=== PATIENT | male | born 1960 | race Caucasian/White ===

== ENCOUNTER 2021-08-02 19:48 | Inpatient (IN) | payer OTHER, BC ==
[~2021-08-02] VITALS: Ht 172.7 cm; Wt 56.2 kg
[~2021-08-02 19:48] MED LIST: BACLOFEN5 MG PO; BENZTROPINE ME0.5 MG PO; BIOFREEZE118 ML TP; CHILDREN'S ZYRT10 M1 PO; CLONAZEPAM 0.50.5 M1 PO; DESYREL150 MG PO; MELATONIN3 M1 PO; MILK OF MA400 MG/5 M PO; MUPIROCIN1 GM TOP; SENNA8.8 MG/5 M PO
[2021-08-02 20:04] VITALS: BP 148/86
[2021-08-02 22:55] VITALS: BP 132/82
--- NOTE | 2021-08-02 23:00 | NUR ---
PATIENT LAYING IN BED WITHOUT ANY COMPLAINTS AT THIS TIME. CALL LIGHT WITHIN REACH. PATIENT LAYING WITH CHIN TUCKED, NO COMMUNCATION EFFORTS MADE TO THIS NURSE. BP 125/74, HR 84, 02-97% RA.
--- NOTE | 2021-08-03 01:52 | NUR ---
HAVE ASSUMED CARE, PT IS SLEEPING AT BEDSIDE
--- NOTE | 2021-08-03 02:44 | NUR ---
UP , AWAKE, TOOK PT TO THE BATHROOM, CHANGED HIS DEPENDS
--- NOTE | 2021-08-03 04:12 | NUR ---
UP WALKING IN [place] WITH
--- NOTE | 2021-08-03 04:53 | NUR ---
COVID PCR IS POSITIVE, WIRE GALVANIZER TALKING WITH , SHE HAS CALLED [facility] AT BEDSIDE
--- NOTE | 2021-08-03 05:54 | NUR ---
THRESHOLD IS 33.4 AND 33.8- RELAYED TO STAFF THAT IT MUST BE 38 TO BE CONSIDER ED NON INFECTIOUS. HAVE OFFERED HER THE ABILITY TO HAVE PT SWABBED AGAIN THIS AM, IT WILL BE 8 HOURS FOR RESULTS TO BE BACK. ALSO OFFERED TO HAVE INFECTIOUS DISEASE PHYSICIAN SEE HIM. SHE HAS DECLINED TO HAVE PT ADMITTED TO COVID UNIT, CONCERNED ABOUT HIS EXPOSURE TO INFECTIOUS PATIENTS. ALSO CONCERNED ABOUT THE NEED FOR MEDICATION MANAGEMENT TO CONTROL RESTLESSNESS. THAT [facility] ENVIRONMENT IS NOT CONDUCIVE TO MONITORING EFFECTIVELY RESPONSE TO MEDICATIONS.
--- NOTE | 2021-08-03 05:59 | NUR ---
THRESHOLDS RAN ON PCR TEST WITH RESULTS OF 33.8 AND 33.4.
--- NOTE | 2021-08-03 07:00 | NUR ---
CONTACTED DR VERDUZCO, HE WILL COME IN THIS AM AND EVALUATE PT SPOUSE DECLINES TO HAVE PT PLACED ON .
--- NOTE | 2021-08-03 07:54 | NUR ---
DR. VERDUZCO HERE TO SPEAK WITH PT. REGARDING PLAN OF CARE FOR PATIENT.
[2021-08-03 08:54] VITALS: BP 151/97
[2021-08-03] MEDS ORDERED: SEROQUEL 25 MG25 M1 PO (09:14)
[2021-08-03] MEDS ORDERED: DEPAKOTE250 MG PO (09:15)
[2021-08-03 09:34] VITALS: BP 129/49
[2021-08-03 12:38] LABS: CHOLESTEROL 171 mg/dL (<200); HDL CHOLESTEROL 66 mg/dL (>40); LDL CHOLESTEROL 89 mg/dL (<100); TC:HDL 2.6 Ratio (Not establshd); TRIGLYCERIDE 80 mg/dL (<150); VLDL 16 mg/dL (<40)
[2021-08-03 15:50] VITALS: BP 166/90
[2021-08-03 21:40] VITALS: BP 163/100
[2021-08-04 04:06] LABS: GLYCOHEMOGLOBIN (HGB A1C) 5.2 % (4.8-5.6)
--- NOTE | 2021-08-04 04:13 | NUR ---
Patient with Alzheimer's dementia, 1:1 sitter at bedside, awake most of the night. Incontinent. Took meds crushed with pudding. Denies pain, Diclofenac not given. High fall risk due to altered mental status, gait steady. Enhanced isolation, COVID positive, asymptomatic. Await patient disposition.
[2021-08-04 07:15] VITALS: BP 127/71
--- NOTE | 2021-08-04 14:27 | NUR ---
SW reviewed chart. Per notes, pt was on service with [facility] prior to admissions. SW spoke with [facility] client liaison, Sol, who states that hospice services were revoked prior to pt coming to the hospital. COLLINS requested hospice revocation ppwk. COLLINS received ppwk and provided to Director of Case Mgmt. COLLINS is following to assist as needed with discharge planning.
[2021-08-04 17:55] VITALS: BP 150/98
[2021-08-04 19:21] VITALS: BP 138/78
[2021-08-05 04:00] VITALS: BP 95/64
--- NOTE | 2021-08-05 05:08 | NUR ---
PROGRESS PT SLEEPING MOST OF SHIFT, SITTER AT BEDSIDE. PT NOT TRYING TO GET OUT OF BED WHEN AWAKE JUST WIGGLING AROUND IN BED. ISOLATION DISCONTINUED PER ED [facility]. INCONTINENT OF URINE PERICARE PROVIDED. CONTINUE POC.
[2021-08-05 08:12] VITALS: BP 102/71
[2021-08-05 15:02] VITALS: BP 130/90
--- NOTE | 2021-08-05 17:12 | NUR ---
CARE ASSUMED THIS AM, PT ALERT TO SELF. HAS SITTLE DUE TO BEING IMPULSIVE AND AGITATED. ON ROOM AIR AND SAT ABOUT 90%. PT IS OFF ISO PER ID. INCONTINENT OF BOWEL AND BLADDER. NO IV PER DR. ORDER. FALL PRECAUTIONS IN PLACE. PT CALLED AND UPDTAED ABOUT CARE.
[2021-08-05 19:10] VITALS: BP 125/92
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
--- NOTE | 2021-08-06 01:30 | NUR ---
PROGRESS PT ALERT BUT NOT ORIENTED ATTEMPTING TO COMMUNICATE BUT WORDS ARE GARBLED. ACTING IMPULSIVE AT START OF SHIFT AND AGGRESSIVE WITH SITTER BUT EASILY DISTRACTED AND REDIRECTED. SLEEP ON AND OFF THROUGHOUT SHIFT VSS. CONTINUE POC.
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
[2021-08-06 07:13] VITALS: BP 99/70
[2021-08-06 16:00] VITALS: BP 125/83
--- NOTE | 2021-08-06 19:33 | NUR ---
ASSUMED PATIENT CARE AT 0700. AWAKE. RESTLESS. AMBULATED IN ROOM. PROGRESSING TOWARDS POC GOALS.
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
[2021-08-07 07:32] VITALS: BP 143/69
--- NOTE | 2021-08-07 14:27 | NUR ---
ORDERS FOR EVAL AND TREAT. Pt IS UP AD NANO IN ROOM. OBSERVED Pt AMBULATING IN ROOM WITHOUT DIFFICULTY AND SPOKE TO NURSING WHO STATES THEY ARE ALLOWING HIM TO GET UP AND WALK WHICH HE DOES. Pt DOES NOT REQUIRE SKILLED SERVICES FOR MOBILITY.
--- NOTE | 2021-08-07 15:26 | NUR ---
08-07-2021--4410--Met with patient's (who is an RN). Allowed her to vent about the decline she feels she sees in his behavior. She reports that [facility] is refusing to take him back and asked her if she had just "considered taking him home with her". Patient had Hospice prior to hospital placement. ([facility] She reports Taci has been working with them from hospice. stated she had several other nursing homes I could try. (Patient is private pay.) She named: [facility]; [facility]; [facility] and [facility]. Worker attempted to call [facility] ([phone]) No one in admissions. Left message to call me back.
--- NOTE | 2021-08-07 19:00 | NUR ---
PT SLEPT UNTIL ABOUT 1030...THEN HE WALKED IN ROOM WITH SITTER PRESENT... AROUND 1530 HE WALKED IN HALLS AROUND WHOLE UNIT WITH AND SITTER FOR ABOUT 45 MINUTES...GAIT BELT IN USE TOLERATED WELL...NEEDS REDIRECTION TO STAY ON HIS PATH AT TIMES...
[2021-08-07 20:00] VITALS: BP 118/80
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
[2021-08-08 06:55] VITALS: BP 150/79
--- NOTE | 2021-08-08 06:57 | NUR ---
PT SLEPT ALL NIGHT. PT REQUIRES TOTAL CARE FOR ADLS.
[2021-08-08 07:10] VITALS: BP 133/75
--- NOTE | 2021-08-08 08:01 | NUR ---
08-08-2021--0745: Faxed information to all facilities requested by . Also attempted call (and faxed information to [facility]) to discuss patient returning to his old alf. Waiting for replies.
[2021-08-08 10:29] LABS: HEMOGLOBIN 15.6 gm/dL (14.0-18.0); MCH 30.6 pg (26.0-34.0); MCHC 33.2 g/dL (28.0-37.0); MCV 92.3 fL (80.0-100.0); RBC 5.09 mil/uL (4.50-6.00); RDW 14.3 % (10.5-14.5); WBC 7.4 thou/uL (4.0-11.0)
[2021-08-08 10:38] LABS: ALBUMIN 3.9 g/dL (3.4-5.0); CALCIUM 9.4 mg/dL (8.5-10.1); CREATININE 0.8 mg/dL (0.7-1.3); POTASSIUM 4.4 mmol/L (3.5-5.1); TOTAL BILIRUBIN 0.6 mg/dL (0.2-1.0); TOTAL PROTEIN 7.7 g/dL (6.4-8.2)
--- NOTE | 2021-08-08 15:05 | NUR ---
08-08-2021--11:00--Call received from ARELIS at [facility] re: patient and his return to their facility (where he came from). RN had many reasons why he couldn't come back stating he was "aggressive". Explained that his behaviors have been bdtter here and it is mainly because on the unit he is on he can't roam. Dr Cisneros explained he would not be going back to [facility] on IM meds. She asked if doctor would write letters explainng interventions and that his behaviors have been appropriate for someone with dementia. Call back to Andrew at 1535 to determine if she had gotten my fax. She states she did and her director is now speaking with another person in administration. She stated Saturday would be a better day for him as there are less staff and no RN available on the weekends. I told her I would pass this on to the doctor. She will call back with the administrations response.
[2021-08-08 15:10] VITALS: BP 145/97
--- NOTE | 2021-08-08 16:00 | NUR ---
08-08-2021--6867--Call from patient's requesting information on placement for her . Advised her that we are still talking with [facility] about bringing him back to their facility. She wanted to kmnow about the other facilities. I explained I have sent faxes and I am waiting for them to call back.
--- NOTE | 2021-08-08 18:20 | NUR ---
NO CHANGE NO THIS SHIFT. AMBULATED IN ROOM WITH SITTER. PROGRSSING TOWARDS POC GOALS.
[2021-08-08 19:39] VITALS: BP 146/88
--- NOTE | 2021-08-09 01:39 | NUR ---
PROGRESS PT ALERT, NON-VERBAL OR UNINTELLIABLE WORDS. UP AMBULATING IN ROOM AT START OF SHIFT. EVENING MEDS GIVEN PER ORDER CRUSHED IN ICE CREAM. PT WENT TO BED AT 2230 AND SLEPT MOST OF SHIFT. VSS. SKIN C/D/I REMAINS INCONTINENT OF BOWEL AND BLADDER. CONTINUE POC.
[2021-08-09 03:31] VITALS: BP 105/55
[2021-08-09 07:05] VITALS: BP 146/77
--- NOTE | 2021-08-09 16:08 | NUR ---
TODAY THIS PT HAS BEEN IN HIS ROOM PACING AROUND FOR MOST OF THE DAY HE AHS HAD STABLE VS AND NO STATED PAIN. HE HAS ATE SOME OF HIS LUNCH AND OTHERWISE HAS BEEN UP AND DOWN ALL DAY. PHYSCIAN WAS CALLED ORDERS WERE GIVEN WHEN HE WAS AGITATED AND SINCE HE HAS BEEN CALM. HE OTHERWISE AWAITS FOR THE NEXT PLAN.
--- NOTE | 2021-08-09 21:29 | NUR ---
PT IN BED AT 2128
--- NOTE | 2021-08-09 21:41 | NUR ---
PROGRESS PT UP AMBULATING IN ROOM, HAD A BM AND SMEARED ON WALL CLEANED UP BY STAFF. ATE AN ICE CREAM WITH ASSISTANCE. GAVE CUPS AND PT STACKED CUPS FOR AWHILE TYLENOL GIVEN FOR NECK PAIN, AND DICLOFENAC CREAM MASSAGED INTO NECK AND SHOULDERS, PT REALLY ENJOYS THE MASSAGE, HE CALMS DOWN AND RELAXES AND WENT TO BED SHORTLY AFTER AT 2130. PT HAD A HARD DAY WAS AGITATED DURING DAY SHIFT AND HAD A GEODON INJECTION. PLAN IS TO [facility] SATUR[facility]. CONTINUE TO MONITOR.
[2021-08-09 23:40] VITALS: BP 141/75
--- NOTE | 2021-08-10 04:55 | NUR ---
pt slept from 2130 to 0400.
--- NOTE | 2021-08-10 04:56 | NUR ---
08/08 -08/09 pt slept 9.5 hours
[2021-08-10 06:50] VITALS: BP 146/107
--- NOTE | 2021-08-10 13:39 | NUR ---
08-10-2021--6283--Resident has been accepted back to his old facility, [place]. An admisssion person Inna will be in on or Saturday to do an assessment. The home cannot take him until Saturday. Call will be made to .--Call to ([phone]) Iliana. She states Lionel is waiting for my call today to tell her she can come and do an assessment. I advised Iliana there wouldn't be a problem with her going on the medical floor and she stated she would be there tomorrow to assess the patient.
--- NOTE | 2021-08-10 13:49 | NUR ---
08-10-2021--1752--Call to Iliana to let her know rep from [employer] would be there tomorrow early to do eval.
--- NOTE | 2021-08-10 19:09 | NUR ---
PT SLEPT ABOUT 4 HOURS TODAY...HE IS INCONTINENT OF BOWEL/BLADDER..HE DID NOT HAVE ANY AGGRESSIVE BEHAVIORS TODAY...HE WENT OUTSIDE TO [place] WITH SITTER AND WITH W/C ANG GAIT BELT TO GET SOME FRESH AIR AND DID WELL PER SITTER..
--- NOTE | 2021-08-11 03:10 | NUR ---
CARE ASSUMED AT 1900 PATIENT WAS AGITATED. AT BEDSIDE. PATIENT IS ON 1;1 FOR SAFETY. PATIENT ENCOURAGED FLUIDS. PATIENT TOOK HS MEDS WITH A LOT OF ENCOURAGEMENT. PATIENT AMBULATES IN THE ROOM WITH STEADY GAITS. NO S/S OF PAIN OR DISCOMFORT. PATIENT IN BED ASLEEP AT THIS TIME BREATHING REGULAR AND UNLABOURED.
[2021-08-11 07:41] VITALS: BP 88/62
[2021-08-11 09:58] VITALS: BP 101/70
--- NOTE | 2021-08-11 11:32 | NUR ---
Seen for LOS: Pt noted with dx dementia, admitted r/t altered mental status from [facility]. He was set to b on [facility], however his PCR covid still showing + from COVID in April. bedside during visit and reports he lost 25# (17% UBW) in 3 wk period in April and UBWR 145-150#. His UBW since has been ~125#. His appetite is good; does better with finger foods or feeding assist. He gets Yonis ensure at all meals and he enjoys those. D/C plan is for return to [facility] on Saturday. Low nutrition risk with interventions in place.
--- NOTE | 2021-08-11 12:42 | NUR ---
CARE ASSUMED THIS AM, PT ALERT TO SELF. UNABLE TO FOLLOW COMMANDS. PT HAS A 1 TO 1 SITTER.NO IV ACCESS PER ORDER. PT AMBULATYES WITH STAFF AND . UPDATED ABOUT CARE. PLAN IS FOR PT TO D/C ON SATURDAY. FALL PRECAUTIONS IN PLACE. WILL CONTINUE TO MONITOR
--- NOTE | 2021-08-12 02:40 | NUR ---
PROGRESS PT ALERT BUT NOT ORIENTED. UP AD NANO PACING IN ROOM. VERY RESTLESS TONIGHT. ATE A CUP OF ICE CREAM AND TAKING SMALL AMOUNTS OF FLUIDS WITH ENCOURAGEMENT. SITTER AT BEDSIDE. PT IN BED AROUND 2300 BUT ARRANGING BLANKETS FREQUENTLY. CONTINUE TO MONITOR.
--- NOTE | 2021-08-12 06:13 | NUR ---
PROGRESS PT RESTLESS THIS SHIFT UPPACING IN ROOM FOR MOST OF SHIFT AND WHEN HE LAID DOWN IN BED HE TOSSED AND TURNED AND DID NOT SLEEP UNTIL 5 TO 6 AM. SITTER AT BEDSIDE FOR SAFETY.
[2021-08-12 07:49] VITALS: BP 142/73
--- NOTE | 2021-08-12 17:38 | NUR ---
PT HAD NEAR MISS OF FALL, 1:1 SITTER FEEDING PT DINNER, PT ACTED LIKE HE WAS GOING TO SIT IN A CHAIR WITH NO CHAIR BEHIND HIM. 1:1 SITTER ABLE TO ASSIST PT COMPLETELY TO FLOOR WITH NO APPARENT INJURY OR DISTURBANCE TO PT. PHYSICIAN CONTACTED. THIS RN AND TRAFFIC CONTROL SUPERVISOR ABLE TO ASSIST PT TO STAND AFTER THIS RN ASSESSED FOR INJURY. NO APPARENT INJURY OBSERVED OR PALPATED. PT HAS BEEN PACING IN ROOM ENTIRE SHIFT, 1:[address] CONTINUOUS. APPROXIMATELY 1 HOUR 20 MINUTES OF REST FOR PT THIS SHIFT. UNABLE TO TAKE PT BP DUE TO COMBATIVE NATURE OF PT. THIS RN UPDATED PT ALIDA. NO FURTHER QUESTIONS OR CONCERNS AT THIS TIME. WILL CONTINUE TO MONITOR PT FOR ANY ADVERSE CONDITIONS.
[2021-08-12 19:00] VITALS: BP 113/76; BP 3/76
[2021-08-13 04:10] VITALS: BP 121/77
--- NOTE | 2021-08-13 04:41 | NUR ---
PT PROGRESSING SLOWLY TOWARDS D/C GOALS. VSS AFEBRILE. NO S/S PAIN. SATS 97% ON RA. INC OF URINE. PT SLEPT MOST OF NIGHT AFTER SEROQUEL AND BACLOFEN GIVEN LAST NIGHT. SITTER IN RM WITH PT. BED ALARM IS ON.
[2021-08-13 14:00] VITALS: BP 121/77
--- NOTE | 2021-08-13 16:37 | NUR ---
RESUMED PT CARE THIS AM. PT ABLE TO SLEEP WELL LAST NIGHT FOR 8 HOURS. PT PACING ROOM MOST OF SHIFT, WITH TWO 1 HOUR NAPS DURING SHIFT. PT TOLERATES MEDICATIONS WELL CRUSHED IN PUDDING. 1 TO 1 SITTER IN ROOM AT ALL TIMES AND WATCHING PT CLOSELY. PLAN TO DISCHARGE TOMORROW TO [facility]. WILL CONTINUE TO MONITOR.
[2021-08-13 20:51] VITALS: BP 97/68
--- NOTE | 2021-08-13 21:57 | NUR ---
PT CONFUSED X4. NONVERBAL. FOLLLOWS COMMANDS AT TIMES TO OPEN MOUTH AND SWALLOW. PT WAS ABLE TO AMBULATE WITH HIS AND SITTER IN RM AND HALLWAY. HIS GAVE HIM 4 CUPS OF WATER ACCORDING TO SITTER. HE ATE ALL HIS DINNER ACCORDING TO THE SITTER. PRESENTLY PT IS SLEEPING QUIETLY AFTER HS MEDS GIVEN. SATS 97-100% ON RA. NO S/S DISTRESS NOTED PRESENTLY. SITTER IN RM AT BS. BED DOWN CALL LIGT IN REACH. BED ALARM IS ON. VSS. AFEBRILE.
[2021-08-14 05:30] VITALS: BP 123/75
--- NOTE | 2021-08-14 05:56 | NUR ---
PT PROGRESSING TOWARDS D/C GOALS VSS . AFEBRILE SAT 0100% ON RA THIS AM. NO S/S PAIN. INC IN LG AMTS. SITTER STATED PT HAS HAD 6 CUPS OF WATER THROUGHOUT THE SHIFT. HIS GO HIM TO EAT HIS DINNER AND DRINK PLENTY OF FLUIDS. NO S/S DISTRESS.
[2021-08-14 07:42] VITALS: BP 135/81
--- NOTE | 2021-08-14 08:17 | NUR ---
08-14-2021--8792--Call to . She states the assessment went well. She will transport the paitent unless staff and Dr. Hinojosa want another transportation. Call to Cathleen at [facility] ([phone]) She said any time today was fine. I advised wanted to transport and wants to leave after Dr. Hinojosa rounds at approx 0830. Waiting for DC instructions from Dr. Iniguez
--- NOTE | 2021-08-14 08:29 | NUR ---
08-14-2021--0830--Patient to [facility] today at 9:[address] Cisneros's instructions. alf notified and patient's will transport.
[2021-08-14] MEDS ORDERED: LORATIDINE 10 MG PO (08:49)
[2021-08-14] MEDS ORDERED: DEPAKOTE SPRIN125 MG PO (08:50)
[2021-08-14] MEDS ORDERED: SEROQUEL 50 MG50 MG PO ×2 (08:51)
--- NOTE | 2021-08-14 09:41 | NUR ---
PATIENT'S IS HERE TO [employer] LAW ENFORCEMENT AGENT PATIENT TO [facility].
== END 2021-08-14 09:42 | DRG 56 ==
LOC: ER 19:48 → 3W 08-03 08:43 → EROBS 08-03 08:43 → 3W 08-03 09:11
PROVIDERS: Hospitalist; Nurse Practitioner Family; ADMIT Psychiatry & Neurology Psychiatry; ATTEND Psychiatry & Neurology Psychiatry
DX: G30.0 Alzheimer's disease with early onset (principal); U07.1 COVID-19; F02.81 Dementia in other diseases classified elsewhere, unspecified severity, with behavioral disturbance; F01.51 Vascular dementia, unspecified severity, with behavioral disturbance; I16.0 Hypertensive urgency; I10 Essential (primary) hypertension; I48.91 Unspecified atrial fibrillation; E78.5 Hyperlipidemia, unspecified; Z66 Do not resuscitate; E86.0 Dehydration; N19 Unspecified kidney failure; Z88.8 Allergy status to other drugs, medicaments and biological substances
CPT/HCPCS: 10080